=== PATIENT | female | born 1985 | race Caucasian/White ===

== ENCOUNTER 2018-04-30 08:58 | Observation (INO) | payer OTHER | END 2018-04-30 11:00 | disposition home or self-care (01) | LOC: FLD 08:58 | PROVIDERS: ADMIT Advanced Practice Midwife; ATTEND Advanced Practice Midwife | DX: Z34.83 Encounter for supervision of other normal pregnancy, third trimester (principal) | CPT/HCPCS: 59025; G0378 ==

== ENCOUNTER 2018-05-12 17:15 | Observation (INO) | payer OTHER | END 2018-05-12 18:04 | disposition home or self-care (01) | LOC: FLD 17:15 | PROVIDERS: ADMIT Advanced Practice Midwife; ATTEND Advanced Practice Midwife | DX: O36.8130 Decreased fetal movements, third trimester, not applicable or unspecified (principal); Z3A.00 Weeks of gestation of pregnancy not specified | CPT/HCPCS: 59025; G0378 ==

== ENCOUNTER 2018-05-30 02:17 | Inpatient (IN) | payer OTHER ==
--- NOTE | 2018-05-30 02:39 | PDGENHP ---
History and Physical History and Physical: CARE: [facility] HPI: Patient is a 33 yo G 3 P 0 @ 41.4 weeks that presents to L&D with complaints of SROM and strong regular contractions since 2099. EDC: 05/19/2018 which is based on LMP: 08/22/17 which is known and consistent with Ultrasound at 7 weeks. Her is complicated by: early EARNEST (resolved), elevated 1 hour GTT, normal 3 hr GTT Review of Systems: Constitutional: Denies any fever, chills, or fatigue HEENT: denies any visual changes, difficulty swallowing, hearing loss Cardiovascular: Denies any chest pain, palpitations, leg swelling Respiratory: denies any cough, wheezing, or shortness of breathe GI: Denies any nausea, vomiting, diarrhea, constipation : denies any dysuria, urgency, frequency, vaginal bleeding Musculoskeletal: denies any muscle or bone pain Skin: denies any rashes Neuro: denies any headache, seizures, lightheadedness, dizziness, or loss of consciousness Psychiatric: denies any depression, anxiety, or SI/HI thoughts HISTORY: Previous OB history: 2013 EAB, 2017 SAB/D&C Social history: , teacher Family history: mom with diabetes and htn Past medical history: denies Past surgical history: tonsillectomy approx 1992 Medications: PNV, Vit D, iron q day Allergies (list reaction): ciprofloxacin LABS: Rh: O+ ABS: Neg Rubella: Immune HbsAg: NR HIV: NR VDRL: NR 1hr: 144, 3 hour wnl GC: Neg Chlamydia: Neg Pap: Normal 2015 GBS: neg BMI: (prepreg) = 20 PHYSICAL EXAM: Constitutional: WN, A&Ox3 HEENT: normocephalic atraumatic, supple Heart: RRR, no murmur Chest: CTA-B Skin: warm, dry, intact Abdomen: Soft, nontender, gravid SVE: 2/80/-1 in office this afternoon Extremities: neg edema, negative homans sign Neuro: grossly normal Psych: normal affect assessment: FHT baseline 130, +accels, no decels, moderate variability Contractions: toco q 2-3 Assessment: 1) 33 yo G 3 P 0 with IUP@ 41w4d 2) spontaneous rupture of membranes with onset of labor labor 3) GBS neg 4) Cat 1 FHR tracing Plan: 1) Admit to L&D 2) anticipate
[2018-05-30] MEDS ORDERED: OXYTOCIN/RINGERS LACTATE 1,000 ML IV PRN (02:52)
[2018-05-30] MEDS ORDERED: LIDOCAINE 1% 300 MG/30 ML SDV SC PRN (02:52)
[2018-05-30] MEDS ORDERED: OLIVE OIL 118 ML BTL MISC PRN (02:52)
[2018-05-30] MEDS ORDERED: EPSOM SALT 454 GM TP PRN (02:52)
[2018-05-30] MEDS ORDERED: MISOPROSTOL 200 MCG TAB PR PRN (02:52)
[2018-05-30] MEDS ORDERED: IBUPROFEN 600 MG TAB PO PRN (02:52)
[2018-05-30] MEDS ORDERED: LR 1,000 ML IV PRN (02:52)
[2018-05-30] MEDS ORDERED: AMMONIA AROMATIC 1 EACH AMP IH ONE (02:58)
[2018-05-30] MEDS ORDERED: OLIVE OIL 118 ML BTL ONE (02:58)
[2018-05-30] MEDS ORDERED: OXYTOCIN 10 UNIT/ML VIAL ONE (02:58)
[2018-05-30] MEDS ORDERED: MISOPROSTOL 200 MCG TAB ONE (02:58)
[2018-05-30] MEDS ORDERED: LIDOCAINE 1% 300 MG/30 ML SDV ONE (02:58)
[2018-05-30] MEDS ORDERED: TERBUTALINE SULFATE 1 MG/ML VIAL ONE (02:58)
[2018-05-30 03:11] LABS: PLATELET COUNT 121 10^3/uL (150-400)
--- NOTE | 2018-05-30 06:44 | OBPROG ---
Labor Progress Note Assessment/Plan: Assessment: 41 weeks SROM active labor Plan: anticipate 05/30/18 06:42 Subjective/Intrapartum Course: 05/30/18 06:42 coping well with ctx, starting to feel some pressure, FOB and college sports assistant at bedside for support. Objective: 05/30/18 02:45 Patient ABO/Rh O POSITIVE 05/30/18 02:45 VSS - SVE Membranes: SROM Amniotic Fluid Color: Clear - Contraction Pattern Assessment Current Contraction Pattern: Regular CNM Assessment - Uterine Assessment Contraction Strength: Strong Uterine Resting Tone: Palpates Soft Contraction Frequency (minutes): 2-3 min - Intermittent Auscultation Auscultation Method Used: Doppler Heart Rate Auscultated (bpm): 130 Oxytocin Orders Assessment - Pre-Induction/Augmentation Assessment Gestational Age: 41 week(s) and 4 day(s) ICD10 Worksheet Patient Problems: Problems Problem Status Onset Post term , 41 weeks Acute
--- NOTE | 2018-05-30 07:44 | OBPROG ---
Labor Progress Note Assessment/Plan: Assessment: [id number] with IUP@41-4wks GBS Negative early labor SROM @ 0030- clear Plan: iv fluids 500ml bolus pain management PRN reassess 2hr/PRN 05/30/18 07:39 Subjective/Intrapartum Course: 05/30/18 06:42 coping well with ctx, starting to feel some pressure, FOB and instructor looping at bedside for support. 05/30/18 07:41 pt breathing through contractions. She is standing and changing positions. She has instructor looping and FOB @ BS - supportive. She is declining pain relief at this time. Objective: 05/30/18 02:45 Patient ABO/Rh O POSITIVE 05/30/18 02:45 - SVE Dilation (cm): 3 Effacement (%): 80 Station: -1 Membranes: SROM Amniotic Fluid Color: Clear - Contraction Pattern Assessment Current Contraction Pattern: Regular CNM Assessment - Intermittent Auscultation Auscultation Method Used: Doppler Heart Rate Auscultated (bpm): 130 FHR Acceleration(s) Auscultated: Yes FHR Deceleration(s) Auscultated: No Oxytocin Orders Assessment - Pre-Induction/Augmentation Assessment Gestational Age: 41 week(s) and 4 day(s) ICD10 Worksheet Patient Problems: Problems Problem Status Onset Labor and delivery, indication for care Acute Post term , 41 weeks Acute - ICD10 Problem Qualifiers (1) Labor and delivery, indication for care
[2018-05-30] MEDS ORDERED: fentaNYL 2MCG/ML/BUP 0.1% RTU 100 ML BAG EP ONE ×2 (09:33→19:30)
--- NOTE | 2018-05-30 10:06 | PREANESOB ---
Obstetric Pre-Anesthesia Info - General Info : 3 Para: 0 DENISHA: 05/19/18 Gestational Age: 41 week(s) and 4 day(s) - Labor Status Cervical Dilation per last OB SVE: 3 Station per last OB SVE: -1 Amniotic Fluid Color: Clear Magnesium Sulfate in Use: No Indications for Labor Analgesia: Pain Control Labor Epidural: Yes Anesthesia Allergies/Adverse Reactions: Allergy/AdvReac Type Severity Reaction Status Date / Time ciprofloxacin Allergy Verified 05/30/18 02:24 Home Medications: Medication Instructions Recorded Ergocalciferol (Vitamin D2) 1,000 units 05/30/18 [Vitamin D2] Vit27&Calcium/Iron/FA 05/30/18 [] Visit Medications: Generic Name Dose Route Start Last Admin Trade Name Freq PRN Reason Stop Dose Admin Lactated Ringer's 1,000 mls @ 0 mls/hr 05/30/18 02:52 Lr IV 05/31/18 02:51 PRN PRN SEE PROTOCOL CONDITIONS Protocol Per Protocol Oxytocin/Lactated Ringer's 1,000 mls @ 125 mls/hr 05/30/18 02:52 Pitocin 20 Units/Lr (Premix) IV PRN PRN Post bleeding Ibuprofen 600 mg 05/30/18 02:52 Motrin PO ONCE PRN post , pain Lidocaine HCl 300 mg 05/30/18 02:52 Lidocaine Hcl 1% SC 11/26/18 02:51 ONCE PRN episiotomy Magnesium Sulfate 454 gm 05/30/18 02:52 Epsom Salt TP 11/26/18 02:51 Q1H PRN perineal discomfort Misoprostol 800 - 1,000 mcg 05/30/18 02:52 Cytotec UT ONCE PRN Vaginal Atony/Bleeding Reliance Oil 118 ml 05/30/18 02:52 Sweet Oil MISC 11/26/18 02:51 ONCE PRN perineal massage Discontinued Medications Generic Name Dose Route Start Last Admin Trade Name Freq PRN Reason Stop Dose Admin Ammonia (Aromatic Spirit) Confirm 05/30/18 02:58 Ammonia Aromatic Administered 05/30/18 02:59 Dose 1 each IH .STK-MED ONE Fentanyl/Bupivacaine HCl Confirm 05/30/18 09:33 Fentanyl/Bupivacaine/Ns 2 Mcg/Ml 0.1% (Premix Administered 05/30/18 09:34 Dose 100 ml EP .STK-MED ONE Lidocaine HCl Confirm 05/30/18 02:58 Lidocaine Hcl 1% Administered 05/30/18 02:59 Dose 300 mg .ROUTE .STK-MED ONE Misoprostol Confirm 05/30/18 02:58 Cytotec Administered 05/30/18 02:59 Dose 1,000 mcg .ROUTE .STK-MED ONE Reliance Oil Confirm 05/30/18 02:58 Sweet Oil Administered 05/30/18 02:59 Dose 118 ml .ROUTE .STK-MED ONE Oxytocin Confirm 05/30/18 02:58 Pitocin Administered 05/30/18 02:59 Dose 40 unit .ROUTE .STK-MED ONE Terbutaline Sulfate Confirm 05/30/18 02:58 Brethine Administered 05/30/18 02:59 Dose 1 mg .ROUTE .STK-MED ONE - Vital Signs Height/Weight (Nursing): Height 170.18 cm Weight 76.204 kg Labs: 05/30/18 02:45 Patient ABO/Rh O POSITIVE 05/30/18 02:45
[2018-05-30] MEDS ORDERED: LR 500 ML IV SCH (10:30)
--- NOTE | 2018-05-30 14:00 | OBPROG ---
Labor Progress Note Assessment/Plan: strip check: FHR 130, +accels, no decels, mod BTBV pt comfortable with MANOLO, resting will reassess @ 1400 Subjective/Intrapartum Course: 05/30/18 06:42 coping well with ctx, starting to feel some pressure, FOB and cardroom plastic card grader at bedside for support. 05/30/18 07:41 pt breathing through contractions. She is standing and changing positions. She has cardroom plastic card grader and FOB @ BS - supportive. She is declining pain relief at this time. Objective: 05/30/18 02:45 Patient ABO/Rh O POSITIVE 05/30/18 02:45 - SVE Membranes: SROM Amniotic Fluid Color: Clear - Contraction Pattern Assessment Current Contraction Pattern: Regular Oxytocin Orders Assessment - Pre-Induction/Augmentation Assessment Gestational Age: 41 week(s) and 4 day(s) ICD10 Worksheet Patient Problems: Problems Problem Status Onset Labor and delivery, indication for care Acute Post term , 41 weeks Acute - ICD10 Problem Qualifiers (1) Labor and delivery, indication for care
[2018-05-30] MEDS ORDERED: LR 500 ML IV PRN (14:03)
--- NOTE | 2018-05-30 14:03 | OBPROG ---
Labor Progress Note Assessment/Plan: Assessment: 33yo with IUP@ 41-4wks labor GBS Negative SROM @ 0030 Plan: start pitocin at this time cont position changes reassess 2-3 hr/PRN anticipate 05/30/18 14:00 Subjective/Intrapartum Course: 05/30/18 06:42 coping well with ctx, starting to feel some pressure, FOB and railroad car repair supervisor at bedside for support. 05/30/18 07:41 pt breathing through contractions. She is standing and changing positions. She has railroad car repair supervisor and FOB @ BS - supportive. She is declining pain relief at this time. 05/30/18 14:02 Pt doing well, was able to rest some. She denies any pain. FOB @ BS and supportive Objective: 05/30/18 02:45 Patient ABO/Rh O POSITIVE 05/30/18 02:45 - SVE Dilation (cm): 5 Effacement (%): 90 Station: -1 Membranes: SROM Amniotic Fluid Color: Clear - Contraction Pattern Assessment Current Contraction Pattern: Regular - FHR Assessment Parks FHR (bpm): 120 FHR Pattern Variability: Moderate FHR Category: 1 Oxytocin Orders Assessment - Pre-Induction/Augmentation Assessment Gestational Age: 41 week(s) and 4 day(s) ICD10 Worksheet Patient Problems: Problems Problem Status Onset Labor and delivery, indication for care Acute Post term , 41 weeks Acute - ICD10 Problem Qualifiers (1) Labor and delivery, indication for care
[2018-05-30] MEDS ORDERED: OXYTOCIN/RINGERS LACTATE 500 ML IV SCH (14:30)
[2018-05-30] MEDS: CALCIUM CARBONATE 500 MG CHEWABLE TAB PO PRN ×2 (17:40→18:16)
[2018-05-30] MEDS ORDERED: fentaNYL 2MCG/ML/BUP 0.1% RTU 100 ML EP SCH (20:00)
--- NOTE | 2018-05-30 20:20 | OBPROG ---
Labor Progress Note Assessment/Plan: Assessment: 33yo with IUP@ 41-4wks labor- prolong labor GBS Negative SROM @ 0030 IUPC placed Plan: start pitocin at this time cont position changes reassess 2-3 hr/PRN Subjective/Intrapartum Course: 05/30/18 06:42 coping well with ctx, starting to feel some pressure, FOB and burlapper at bedside for support. 05/30/18 07:41 pt breathing through contractions. She is standing and changing positions. She has burlapper and FOB @ BS - supportive. She is declining pain relief at this time. 05/30/18 14:02 Pt doing well, was able to rest some. She denies any pain. FOB @ BS and supportive 05/30/18 18:40 Pt doing well, she denies any pain. She feels slightly discouraged about minimal change, agrees to IUPC placement. aware will cont pitocin. FOB and burlapper @ BS Objective: 05/30/18 02:45 Patient ABO/Rh O POSITIVE 05/30/18 02:45 - SVE Dilation (cm): 6 Effacement (%): 90 Station: -1 Membranes: SROM Amniotic Fluid Color: Clear - Contraction Pattern Assessment Current Contraction Pattern: Regular - FHR Assessment Parks FHR (bpm): 135 FHR Pattern Variability: Moderate FHR Category: 1 - Procedures Non-surgical Procedures: IUPC Oxytocin Orders Assessment - Pre-Induction/Augmentation Assessment Gestational Age: 41 week(s) and 4 day(s) ICD10 Worksheet Patient Problems: Problems Problem Status Onset Labor and delivery, indication for care Acute Post term , 41 weeks Acute - ICD10 Problem Qualifiers (1) Labor and delivery, indication for care
--- NOTE | 2018-05-30 20:23 | OBPROG ---
Labor Progress Note Assessment/Plan: Assessment: 33yo with IUP@ 41-4wks labor- protracted labor GBS Negative SROM @ 0030 MVUs <100 Plan: cont pitocin at this time cont position changes reassess 2-3 hr/PRN Subjective/Intrapartum Course: 05/30/18 06:42 coping well with ctx, starting to feel some pressure, FOB and paint department supervisor at bedside for support. 05/30/18 07:41 pt breathing through contractions. She is standing and changing positions. She has paint department supervisor and FOB @ BS - supportive. She is declining pain relief at this time. 05/30/18 14:02 Pt doing well, was able to rest some. She denies any pain. FOB @ BS and supportive 05/30/18 18:40 Pt doing well, she denies any pain. She feels slightly discouraged about minimal change, agrees to IUPC placement. aware will cont pitocin. FOB and paint department supervisor @ BS 05/30/18 20:21 Pt reports some pressure, but denies any pain. She desires to cont position changes and pitocin. Objective: 05/30/18 02:45 Patient ABO/Rh O POSITIVE 05/30/18 02:45 - SVE Dilation (cm): 6 Effacement (%): 90 Station: 0 Membranes: SROM Amniotic Fluid Color: Clear - Contraction Pattern Assessment Current Contraction Pattern: Regular - FHR Assessment Aprks FHR (bpm): 145 FHR Pattern Variability: Moderate FHR Category: 1 - Procedures Non-surgical Procedures: IUPC Oxytocin Orders Assessment - Pre-Induction/Augmentation Assessment Gestational Age: 41 week(s) and 4 day(s) ICD10 Worksheet Patient Problems: Problems Problem Status Onset Labor and delivery, indication for care Acute Post term , 41 weeks Acute - ICD10 Problem Qualifiers (1) Labor and delivery, indication for care
[2018-05-30] MEDS: SIMETHICONE 80 MG TAB CHEW PO SCH (21:06)
[2018-05-30] MEDS ORDERED: PROPRANOLOL HCL 1 MG/ML VIAL IV ONE (21:55)
--- NOTE | 2018-05-30 21:58 | OBPROG ---
Labor Progress Note Assessment/Plan: Assessment: 33yo with IUP@ 41-4wks labor- protracted labor GBS Negative SROM @ 0030 MVUs <100 Plan: cont pitocin at this time cont position changes IV propanalol x 1 dose now to increase responsiveness to pitocin reassess @ 2300 05/30/18 21:56 Subjective/Intrapartum Course: 05/30/18 06:42 coping well with ctx, starting to feel some pressure, FOB and waist presser at bedside for support. 05/30/18 07:41 pt breathing through contractions. She is standing and changing positions. She has waist presser and FOB @ BS - supportive. She is declining pain relief at this time. 05/30/18 14:02 Pt doing well, was able to rest some. She denies any pain. FOB @ BS and supportive 05/30/18 18:40 Pt doing well, she denies any pain. She feels slightly discouraged about minimal change, agrees to IUPC placement. aware will cont pitocin. FOB and waist presser @ BS 05/30/18 20:21 Pt reports some pressure, but denies any pain. She desires to cont position changes and pitocin. 05/30/18 21:56 Pt exhausted, open to trying propanalol. but desires c/s at 2300 if no cervical change. Objective: 05/30/18 02:45 Patient ABO/Rh O POSITIVE 05/30/18 02:45 - SVE Membranes: SROM Amniotic Fluid Color: Clear - Contraction Pattern Assessment Current Contraction Pattern: Regular - FHR Assessment Parks FHR (bpm): 130 FHR Pattern Variability: Moderate FHR Category: 1 - Procedures Non-surgical Procedures: IUPC Oxytocin Orders Assessment - Pre-Induction/Augmentation Assessment Gestational Age: 41 week(s) and 4 day(s) ICD10 Worksheet Patient Problems: Problems Problem Status Onset Labor and delivery, indication for care Acute Post term , 41 weeks Acute - ICD10 Problem Qualifiers (1) Labor and delivery, indication for care
[2018-05-30] MEDS ORDERED: PHENYLEPHRINE HCL 100 MCG/ML SYR IVP PRN (22:09)
[2018-05-31] MEDS ORDERED: ceFAZolin 2 GM/DEXTROSE 100 ML IV ONE (00:36)
[2018-05-31] MEDS ORDERED: LR 500 ML IV ONE (00:36)
--- NOTE | 2018-05-31 00:36 | OBPROG ---
Labor Progress Note Assessment/Plan: Assessment: 33yo with IUP@ 41-4wks arrest of labor GBS Negative SROM @ 0030 MVUs <100 Plan: d/c pitocin at this time pt consented on B/R/A of primary c/s proceed with c/s Thea Mejia aware Subjective/Intrapartum Course: 05/30/18 06:42 coping well with ctx, starting to feel some pressure, FOB and lie detector operator at bedside for support. 05/30/18 07:41 pt breathing through contractions. She is standing and changing positions. She has lie detector operator and FOB @ BS - supportive. She is declining pain relief at this time. 05/30/18 14:02 Pt doing well, was able to rest some. She denies any pain. FOB @ BS and supportive 05/30/18 18:40 Pt doing well, she denies any pain. She feels slightly discouraged about minimal change, agrees to IUPC placement. aware will cont pitocin. FOB and lie detector operator @ BS 05/30/18 20:21 Pt reports some pressure, but denies any pain. She desires to cont position changes and pitocin. 05/30/18 21:56 Pt exhausted, open to trying propanalol. but desires c/s at 2300 if no cervical change. 05/31/18 00:34 Pt doing ok- states she is tired and wants to be done. She desires primary c/s at this time. FOB and lie detector operator @ BS and supportive. Objective: 05/30/18 02:45 Patient ABO/Rh O POSITIVE 05/30/18 02:45 Temp Pulse Resp BP Pulse Ox 83 146/86 H 05/30/18 22:23 05/30/18 22:23 - SVE Dilation (cm): 8 Effacement (%): 100 Station: 0 Membranes: SROM Amniotic Fluid Color: Clear - Contraction Pattern Assessment Current Contraction Pattern: Regular - FHR Assessment Parks FHR (bpm): 130 FHR Pattern Variability: Moderate FHR Category: 1 - Procedures Non-surgical Procedures: IUPC Oxytocin Orders Assessment - Pre-Induction/Augmentation Assessment Gestational Age: 41 week(s) and 4 day(s) ICD10 Worksheet Patient Problems: Problems Problem Status Onset Arrested active phase of labor Acute Labor and delivery, indication for care Acute Post term , 41 weeks Acute - ICD10 Problem Qualifiers (1) Labor and delivery, indication for care (2) Arrested active phase of labor
[2018-05-31] MEDS ORDERED: AZITHROMYCIN IV 500 MG in NS 250 ML IV ONE (00:37)
[2018-05-31] MEDS ORDERED: morphINE PF 5 MG/10 ML INJ ONE (00:59)
[2018-05-31] MEDS ORDERED: fentaNYL 100 MCG/2 ML INJ ONE (00:59)
[2018-05-31] MEDS ORDERED: LR 1,000 ML IV SCH (01:00)
[2018-05-31] MEDS ORDERED: METOCLOPRAMIDE 10 MG/2 ML VIAL IVP PRN (01:04)
[2018-05-31] MEDS ORDERED: NALOXONE HCL 0.4 MG/ML INJ IVP PRN ×2 (01:04)
[2018-05-31] MEDS ORDERED: fentaNYL 100 MCG/2 ML INJ IVP PRN (01:04)
[2018-05-31] MEDS ORDERED: PHENYLEPHRINE HCL 100 MCG/ML SYR IVP PRN (01:04)
[2018-05-31] MEDS ORDERED: MEPERIDINE 25 MG/0.5 ML AMP IVP PRN (01:04)
[2018-05-31] MEDS ORDERED: ONDANSETRON 4 MG/2 ML VIAL IVP PRN ×2 (01:04→01:11)
[2018-05-31] MEDS ORDERED: OXYTOCIN 100 UNITS/10 ML VIAL ONE (01:08)
[2018-05-31] MEDS ORDERED: ONDANSETRON 4 MG/2 ML VIAL ONE (01:08)
[2018-05-31] MEDS ORDERED: PROMETHAZINE HCL 25 MG/ML INJ IVP PRN (02:50)
[2018-05-31] MEDS ORDERED: LACTULOSE 20 GM/30 ML UDCUP PO PRN (02:50)
[2018-05-31] MEDS ORDERED: HYDROCODONE/APAP 5/325 TAB PO PRN (02:50)
[2018-05-31] MEDS ORDERED: MAGNESIUM HYDROXIDE 30 ML UDCUP PO PRN (02:50)
[2018-05-31] MEDS ORDERED: POLYETHYLENE GLYCOL 3350 17 GM PKT PO PRN (02:50)
[2018-05-31] MEDS ORDERED: SIMETHICONE 80 MG TAB CHEW PO PRN (02:50)
[2018-05-31] MEDS ORDERED: BISACODYL 10 MG SUPP PR PRN (02:50)
--- NOTE | 2018-05-31 02:57 | OBDEL ---
Info Type: Primary Presentation at Delivery: Vertex L&D Analgesia/Anesthesia Type: Epidural GBS+: No Intrapartum Medications: Generic Name Dose Route Start Last Admin Trade Name Dona PRN Reason Stop Dose Admin Calcium Carbonate 500 mg 05/30/18 17:02 05/30/18 18:16 Tums PO 11/26/18 17:01 500 mg TID PRN Administration Indigestion Lactated Ringer's 500 mls @ 0 mls/hr 05/30/18 10:30 05/30/18 14:15 Lr IV 11/26/18 10:29 500 mls CONT EARNEST Administration As Directed Oxytocin/Lactated Ringer's 500 mls @ 0 mls/hr 05/30/18 14:30 05/30/18 14:15 Pitocin 30 Units/Lr (Premix) IV 11/26/18 14:29 500 mls CONT EARNEST Administration Protocol Per Protocol Fentanyl/Bupivacaine HCl 100 mls @ 0 mls/hr 05/30/18 20:00 05/30/18 21:06 Fentanyl/Bupivacaine/Ns 2 Mcg/Ml 0.1% (Premix EP 06/09/18 19:59 100 mls CONT EARNEST Administration Protocol As Directed Ondansetron HCl 4 mg 05/31/18 01:11 05/31/18 01:19 Zofran IVP 11/27/18 01:10 4 mg Q4HRS PRN Administration Nausea/Vomiting, Can't Take PO Simethicone 80 mg 05/30/18 21:00 05/30/18 21:06 Mylicon PO 11/26/18 20:59 80 mg PCHS EARNEST Administration Discontinued Medications Generic Name Dose Route Start Last Admin Trade Name Dona PRN Reason Stop Dose Admin Lactated Ringer's 1,000 mls @ 0 mls/hr 05/30/18 02:52 05/30/18 14:15 Lr IV 05/31/18 02:51 1,000 mls PRN PRN Administration SEE PROTOCOL CONDITIONS Protocol Per Protocol Lactated Ringer's 500 mls @ 500 mls/hr 05/30/18 14:03 05/30/18 14:15 Lr IV 05/31/18 14:03 500 mls PRN PRN Administration Maternal Hypotension Azithromycin 500 mg/ Sodium 255 mls @ 255 mls/hr 05/31/18 00:37 05/31/18 00: 59 Chloride IV 05/31/18 01:36 255 mls ONCE ONE Administration Protocol Propranolol HCl 2 mg 05/30/18 21:55 05/30/18 22:23 Inderal Injection IV 05/30/18 21:56 2 mg ONCE ONE Administration - Infant Care Provider Wire Brush Operator/AIR QUALITY ENGINEER: Richa Diaz - Hospital Course Intrapartum: 05/30/18 06:42 coping well with ctx, starting to feel some pressure, FOB and yard motor operator at bedside for support. 05/30/18 07:41 pt breathing through contractions. She is standing and changing positions. She has yard motor operator and FOB @ BS - supportive. She is declining pain relief at this time. 05/30/18 14:02 Pt doing well, was able to rest some. She denies any pain. FOB @ BS and supportive 05/30/18 18:40 Pt doing well, she denies any pain. She feels slightly discouraged about minimal change, agrees to IUPC placement. aware will cont pitocin. FOB and yard motor operator @ BS 05/30/18 20:21 Pt reports some pressure, but denies any pain. She desires to cont position changes and pitocin. 05/30/18 21:56 Pt exhausted, open to trying propanalol. but desires c/s at 2300 if no cervical change. 05/31/18 00:34 Pt doing ok- states she is tired and wants to be done. She desires primary c/s at this time. FOB and yard motor operator @ BS and supportive. Indications for Delivery: SROM Vaginal Delivery - Labor and Delivery Onset of Contractions Date: 05/29/18 Onset of Contractions Time: 21:30 Amniotic Fluid Color: Clear Non-surgical Procedures: IUPC Operative Report - Delivery Pre-op Diagnoses: IUP @ 41 5/7 weeks, SROM, arrest of dilation Post-op Diagnoses: same History of Prior Section: No Number of Prior Sections: 0 Nulliparous Prior to Delivery: Yes Indications for Current Section: Arrest of Dilation Procedure: Unscheduled Surgeon: Thea Mejia Finance Accounting Internship: Edelmira Macedo Anesthesiologist: Hector Givens Complications: None Findings: normal uterus, tubes and ovaries IV Fluid (ml): 1,600 EBL: 750 Data DENISHA: 05/19/18 Gestational Age: 41 week(s) and 5 day(s) Parks Delivery Date: 05/31/18 Delivery Time: 02:01 Sex of Infant: Female Score (1 Min): 8 Score (5 Min): 9 ICD10 Worksheet Patient Problems: Problems Problem Status Onset Arrested active phase of labor Acute Labor and delivery, indication for care Acute Post term , 41 weeks Acute
--- NOTE | 2018-05-31 03:05 | PDANEPAE ---
ANE Past Medical History - Pulmonary History Hx Sleep Apnea: No Sleep Apnea Screening Result - Last Documented: Negative - Chronic Pain History Chronic Pain: No ANE Review of Systems Review of Systems: ANE Patient History - Allergies Allergies/Adverse Reactions: ciprofloxacin Allergy (Verified 05/30/18 02:24) - Home Medications Home Medications: Ergocalciferol (Vitamin D2) [Vitamin D2] 1,000 units 05/30/18 [Last Taken 09:00] Vit27&Calcium/Iron/FA [] 05/30/18 [Last Taken 05/29/18 09:00] - NPO status NPO Since - Liquids (Date): 05/31/18 NPO Since - Liquids (Time): 00:39 NPO Since - Solids (Date): 05/30/18 NPO Since - Solids (Time): 09:00 - Smoking Hx Smoking Status: Never smoked ANE Labs/Vital Signs - Labs Result Diagrams: 05/30/18 02:45 - Vital Signs Blood Pressure: 135/77 Heart Rate: 92 Respiratory Rate: 16 O2 Sat (%): 100 Height: 170.18 cm Weight: 76.204 kg ANE Physical Exam - Airway Neck exam: FROM Mallampati Score: Class 1 Mouth exam: normal dental/mouth exam - Pulmonary Pulmonary: no respiratory distress - Cardiovascular Cardiovascular: regular rate and rhythym - ASA Status ASA Status: II, E ANE Anesthesia Plan Anesthesia Plan: epidural (lakia in place)
--- NOTE | 2018-05-31 03:05 | POSTANESTH ---
Post Anesthetic Evaluation Cardiovascular Status: Similar to Pre-Op Cond Respiratory Status: Similar to Pre-op Cond. Level of Consciousness/Mental Status: Mildly Sleepy, Arousable Pain Control: Adequate, Prn Tx Ordered Nausea/Vomiting Control: Adequate, Prn Tx Ordered Complications Possibly Related to Anesthesia: None Noted
[2018-05-31] MEDS: KETOROLAC 30 MG/1 ML SDV IVP SCH ×3 (05:01→17:39)
[2018-05-31] MEDS ORDERED: KETOROLAC 30 MG/1 ML SDV ONE (05:01)
--- NOTE | 2018-05-31 07:24 | GOP ---
DATE OF OPERATION: 05/31/2018 SURGEON: Thea Mejia MD AIRLINE COUNTER AGENT: Edelmira Macedo, Certified Nurse Washer Blanket. ANESTHESIA: Epidural anesthesia. ANESTHESIOLOGIST: Hector Givens MD. PREOPERATIVE DIAGNOSIS: Intrauterine at 41 and 4/7 weeks' gestation with spontaneous ruptu re of the membranes and arrest of dilation. POSTOPERATIVE DIAGNOSIS: Intrauterine at 41 and 4/7 weeks' gestation with spontaneous rupt ure of the membranes and arrest of dilation. PROCEDURE PERFORMED: Primary lower transverse section. FINDINGS: Viable female, Apgars of 8 and 9, weight of 9 pounds 14 ounces. ESTIMATED BLOOD LOSS: For the procedure was 750 cc. INDICATIONS: The patient is a 33-year-old, 3, para 0, who at 41 and 4/7 weeks' gestation, pr esented with spontaneous rupture of the membranes on the evening of the . She was admitted and o riginally managed expectantly and then augmented with Pitocin. The patient received an epidural and she progressed to 8 cm, 100%, 0 station. Despite multiple increasing doses of Pitocin as well as IV propranolol, the patient failed to progress past 8 cm and the decision was made to proceed with prima ry low transverse section. The patient was consented for the procedure. She understood the risks and benefits, the risks including bleeding, infection, damage to internal organs, uterus, tube s, ovaries, bowel, bladder, nerves, blood vessels, ureters, risk of injury, risk of hemorrhage requiring blood transfusion, hysterectomy, or . She understood these risks and benefits and agr eed to proceed. DESCRIPTION OF PROCEDURE: The patient was taken to the operating room where her epidural was dosed a nd found to be adequate. She was prepped and draped in a dorsal supine position with a leftward tilt , and a Johnson catheter had previously been placed in her bladder and she was also given preoperative IV Zithromax as well as IV Ancef. After adequate anesthesia was assured and a WHO time-out was perfo rmed, a transverse skin incision was made with a scalpel and the incision was carried down to the und erlying layer of fascia with the Bovie. The fascia was incised in the midline. Fascial incision was extended laterally with Concepcion scissors. Superior aspect of the fascial incision was grasped with [facility] her clamps, elevated, and the rectus muscles were dissected off sharply. Inferior aspect of the fasc ial incision was grasped with Josephine clamps, elevated, and the rectus muscles dissected off sharply. Rectus muscles were in the midline. Peritoneum was entered bluntly. Peritoneal incision was extended superiorly and inferiorly with good visualization of the bladder. Bladder blade was ins erted. The vesicouterine peritoneum was entered sharply. Incision was extended laterally, and bladd er flap was created digitally. Bladder blade was reinserted. The uterus was incised with a knife. There was clear amniotic fluid upon entry of the uterine cavity. The incision was extended laterally with bandage scissors. The was in the right OA presentation and was delivered atraumatically. The mouth and nose were bulb suctioned. We delayed cord clamping for 1 minute. Infant was vigorou s upon delivery. The cord was clamped and cut. The was handed off to the waiting nu rse practitioners. Cord bloods were sent. The placenta was removed manually. The uterus was exteri orized, cleared of all clots and debris. The uterine incision was repaired with 0 Vicryl in a runnin g locked fashion. A second imbricating layer of suture was performed with 0 Vicryl and a uterine art cara ligation was performed on the right side due to bleeding and good hemostasis was obtained. The u terus was returned to the abdomen. Gutters were cleared of all clots and debris. Reinspection of th e uterine incision again assured hemostasis. The rectus muscles were approximated with 2-0 Vicryl in an inverted mattress fashion. The fascia was closed with #1 Vicryl in a running fashion, subcutaneo us layer was closed with 2-0 Vicryl, and the skin was closed with 4-0 Monocryl. The patient tolerate d the procedure well. Sponge, lap, needle, and instrument counts were correct x2. Patient went to [facility] recovery room in good condition. IV FLUIDS: 1600. URINE OUTPUT: 150. /[id number]/MODL
[2018-05-31] MEDS: SIMETHICONE 80 MG TAB CHEW PO SCH ×3 (09:05→19:48)
[2018-05-31] MEDS: ACETAMINOPHEN 325 MG TAB PO SCH ×4 (09:08→23:05)
[2018-05-31] MEDS: SENNOSIDES/DOCUSATE SODIUM TAB PO SCH ×2 (09:09→23:05)
--- NOTE | 2018-05-31 10:54 | OBPP ---
Progress Note Assessment/Plan: Assessment:33 POD#0 s/p primary LTCS 2/2 arrest of dilation - doing well. Plan: Continue routine post op cares. Remove urinary catheter today when ambulatory. Encourage ambulation. Aylin Bryan MD, FACOG [facility] 05/31/18 10:50 Subjective/ Course: 05/31/18 10:52 Doing well. Was only able to get about 20 min of sleep. Resting comfortably. has been going well. urinary catheter in place. Has been sitting up and eating - tolerating clears and crackers so far, and is hungry. Pain well controlled. No chest pain, no dyspnea. Objective: 05/31/18 09:45 Patient ABO/Rh O POSITIVE 05/30/18 02:45 Temp Pulse Resp BP Pulse Ox 37.1 C 84 16 113/73 94 05/31/18 08:38 05/31/18 08:38 05/31/18 08:38 05/31/18 08:38 05/31/18 08:38 gen - pleasant, resting comfortably CV - RRR chest - CTAB abd - soft, + BS, dressing C/D/I, fundus firm and appropriately mildly tender at u-2 ext - trace edema BLE, no calf tenderness Uterine Position/Fundal Height: Umbilicus -2 Uterine Tone: Firm
[2018-05-31] MEDS: IBUPROFEN 600 MG TAB PO SCH ×2 (17:40→23:06)
[2018-06-01] MEDS ORDERED: LIDOCAINE 2% JELLY 5 ML TUBE TP ONE
[2018-06-01] MEDS: SIMETHICONE 80 MG TAB CHEW PO SCH ×5 (01:10→22:42)
[2018-06-01] MEDS: KETOROLAC 30 MG/1 ML SDV IVP SCH (01:12)
[2018-06-01] MEDS: IBUPROFEN 600 MG TAB PO SCH ×4 (05:32→23:32)
[2018-06-01] MEDS: ACETAMINOPHEN 325 MG TAB PO SCH ×4 (05:32→23:32)
[2018-06-01] MEDS: SENNOSIDES/DOCUSATE SODIUM TAB PO SCH ×2 (11:33→20:08)
--- NOTE | 2018-06-01 11:48 | OBPP ---
Progress Note Assessment/Plan: Assessment: 33 y/o P1 s/p primary LTCS POD #1 Pain well controlled with oral pain meds Tolerating activity Voiding without difficulty Plan: Routine post op care 06/02/18 06:57 Subjective/ Course: 05/31/18 10:52 Doing well. Was only able to get about 20 min of sleep. Resting comfortably. has been going well. urinary catheter in place. Has been sitting up and eating - tolerating clears and crackers so far, and is hungry. Pain well controlled. No chest pain, no dyspnea. 06/02/18 06:59 Feeling good this am. Pain well controlled with pain meds, voiding, vag bleeding wnl, tolerating regular activity and regular diet, with support from . Objective: 05/31/18 09:45 Patient ABO/Rh O POSITIVE 05/30/18 02:45 Temp Pulse Resp BP Pulse Ox 36.4 C 81 16 123/77 H 95 06/01/18 08:00 06/01/18 08:00 06/01/18 08:00 06/01/18 08:00 06/01/18 08:00 Uterine Position/Fundal Height: Umbilicus -1 Uterine Tone: Firm Physical Exam - Physical Exam EENT: PERRL/EOMI Neck: non-tender Respiratory: normal breath sounds Cardiac/Chest: regular rate, rhythm Abdomen: normal bowel sounds, flatus, incision (clean and dry - healing well) Extremities: normal range of motion Skin: normal color Neuro/Psych: alert, normal mood/affect, oriented x 3
--- NOTE | 2018-06-01 13:58 | POSTANESTH ---
Post Anesthetic Evaluation Cardiovascular Status: Normal, Stable, Similar to Pre-Op Cond Respiratory Status: Normal, Stable, Similar to Pre-op Cond. Level of Consciousness/Mental Status: Can Participate in Eval, Alert and Oriented Pain Control: Adequate, Prn Tx Ordered Nausea/Vomiting Control: Adequate, Prn Tx Ordered Complications Possibly Related to Anesthesia: None Noted Notes: Pt seen and examined. Block has completely resolved, able to ambulate w/o difficulty. Back site c/d/i, no e/e/e. Denies BRUCE/N/V/pruritis.
[2018-06-02] MEDS: ACETAMINOPHEN 325 MG TAB PO SCH ×2 (05:59→13:22)
[2018-06-02] MEDS: IBUPROFEN 600 MG TAB PO SCH ×2 (05:59→13:22)
[2018-06-02 11:40] VITALS: BP 115/80
--- NOTE | 2018-06-02 11:42 | OBGCSDC ---
General Delivery Information - General Info : 3 Para: 1 Abortions: 2 Type: Primary L&D Analgesia/Anesthesia Type: Epidural Admission Date: 05/30/18 Labs: Patient ABO/Rh O POSITIVE 05/30/18 02:45 Hct 29.8 % (38.0-47.0) L 05/31/18 09:45 - Hospital Course Intrapartum: 05/30/18 06:42 coping well with ctx, starting to feel some pressure, FOB and package crimper at bedside for support. 05/30/18 07:41 pt breathing through contractions. She is standing and changing positions. She has package crimper and FOB @ BS - supportive. She is declining pain relief at this time. 05/30/18 14:02 Pt doing well, was able to rest some. She denies any pain. FOB @ BS and supportive 05/30/18 18:40 Pt doing well, she denies any pain. She feels slightly discouraged about minimal change, agrees to IUPC placement. aware will cont pitocin. FOB and package crimper @ BS 05/30/18 20:21 Pt reports some pressure, but denies any pain. She desires to cont position changes and pitocin. 05/30/18 21:56 Pt exhausted, open to trying propanalol. but desires c/s at 2300 if no cervical change. 05/31/18 00:34 Pt doing ok- states she is tired and wants to be done. She desires primary c/s at this time. FOB and package crimper @ BS and supportive. : 05/31/18 10:52 Doing well. Was only able to get about 20 min of sleep. Resting comfortably. has been going well. urinary catheter in place. Has been sitting up and eating - tolerating clears and crackers so far, and is hungry. Pain well controlled. No chest pain, no dyspnea. 06/02/18 06:59 Feeling good this am. Pain well controlled with pain meds, voiding, vag bleeding wnl, tolerating regular activity and regular diet, with support from . 06/02/18 11:47 S) Pt doing well, reports min pain and bleeding. she is ambulating and voiding without difficulty. She is - supplementing with donor milk. She desires discharge home today. O) VSS, afebrile constitutional: WNF, A&Ox3 HEENT: normocephalic, atraumatic, supple Heart: RRR, No murmur Chest: CTA-B Breasts: soft, nontender, not engorged, nipples intact Abdomen: Soft, nontender Incision: C/D/I, well approximated, no erythema, no drainage Uterus: Firm at U-2 Lochia: Minimal rubra Perineum: Intact Extremities: 2+ pedal edema, and negative Giovanny's sign Neuro: Grossly normal A) 33-year-old S/P primary c/s on 05/31/18 PPD#2 P) Discharge home today Continue Pelvic rest x6wks Discussed danger signs (infection, preeclampsia, depression, heavy bleeding, etc ) RTO in 2/4/6 weeks Vaginal - Diagnosis Amniotic Fluid Color: Clear - Procedures Non-surgical Procedures: IUPC - Delivery Providers Surgeon: Thea Mejia Direct Support Professional Home Health: Edelmira Macedo Anesthesiologist: Hector Givens - Delivery Number of Prior Sections: 0 Indications for Current Section: Arrest of Dilation Non-surgical Procedures: IUPC Surgical Procedures: Unscheduled Intra-op Complications: None EBL: 750 [place] Data DENISHA: 05/19/18 Gestational Age: 42 week(s) and 0 day(s) Parks Delivery Date: 05/31/18 Delivery Time: 02:01 Sex of : Female [place] Weight (gm): 4472 g Score (1 Min): 8 Score (5 Min): 9 Discharge Information - Discharge Information Prescriptions: Ibuprofen [Motrin (*)] 600 mg PO Q6H #30 tab oxyCODONE IR [Oxycodone Ir (*)] 5 mg PO Q6-8PRN PRN #5 tab PRN Reason: Pain, Breakthrough Condition: Good
[2018-06-02] MEDS: SENNOSIDES/DOCUSATE SODIUM TAB PO SCH (13:23)
== END 2018-06-02 16:00 | disposition home or self-care (01) | DRG 788 ==
LOC: FLD 02:17 → FOB 05-31 05:32
PROVIDERS: ADMIT Advanced Practice Midwife; ATTEND Obstetrics & Gynecology
PROC: 10D00Z1 Extraction of Products of Conception, Low, Open Approach (ICD-10-PCS; principal; 2018-05-31)
DX: O62.0 Primary inadequate contractions (principal); O75.81 Maternal exhaustion complicating labor and delivery; Z3A.42 42 weeks gestation of pregnancy; Z37.0 Single live birth
CPT/HCPCS: J0456; J0690; J1800; J1885; J2274; J2370; J2405; J2590; J3010; J3105